=== PATIENT | female | born 1950 | race Asian ===

== ENCOUNTER 2022-05-22 14:02 | Emergency (ER) | payer OTHER ==
[~2022-05-22] VITALS: Ht 162.6 cm; Wt 55.3 kg
[2022-05-22 14:19] VITALS: BP_SYST 113
--- NOTE | 2022-05-22 14:26 | NUR ---
plPatient to ER bed 6 to gown for evaluation. Side rails up. Report given to
--- NOTE | 2022-05-22 14:27 | NUR ---
BIBS WITH C/C OF STYE TO RIGHT EYE THAT STARTED 3 DAYS AGO. PT AAO, NAD NOTED. SEEN BY DR. GUZMÁN. PENDING ORDERS.
--- NOTE | 2022-05-22 14:27 | NUR ---
ER at bedside examining patient.
[2022-05-22] MEDS ORDERED: FLOEARD EACH EYE ×2 (14:43)
[2022-05-22] MEDS ORDERED: CLE150 PO ×2 (14:44)
[2022-05-22] MEDS ORDERED: CLIN-22 PO (15:08)
[2022-05-22] MEDS ORDERED: OFLO5DRO EACH EYE (15:08)
--- NOTE | 2022-05-22 15:09 | NUR ---
Pt cleared for DC by Dr. Rachel. priscilla AGUAYO noted. Rx sent to pt's pharm. Pt verbalized understanding of DC instructions. Pt ambulated out of ED in stable condition.
== END 2022-05-22 15:08 | disposition home or self-care (01) ==
LOC: SED 14:02
DX: H00.022 Hordeolum internum right lower eyelid (principal); E11.9 Type 2 diabetes mellitus without complications; Z79.899 Other long term (current) drug therapy
CPT/HCPCS: 82962; 99283